=== PATIENT | female | born 1940 | race Caucasian/White ===

== ENCOUNTER 2021-07-11 11:19 | Emergency (ER) | payer MEDICARE ==
[2021-07-11 11:39] VITALS: RESP 20
[2021-07-11 11:50] VITALS: BP 154/70; PULSE 88; TEMP 98.6
--- NOTE | 2021-07-11 12:47 | ED ---
General Adult HPI - General Chief complaint: Wound/Laceration Stated complaint: Lt Leg Wound Time Seen by Provider: 07/11/21 12:04 Source: patient Mode of arrival: wheelchair Limitations: no limitations - History of Present Illness Initial comments: Dictation was produced using [employer] dictation software. please excuse any grammatical, word or spelling errors. Chief Complaint: 81-year-old female presents emergency department for left leg wound History of Present Illness: 81-year-old female presents to the emergency department for evaluation of left leg wound. TAC on the of last month she struck her lateral lower leg on the corner of a standing object and suffered a wound. She said there was initial bleeding. She didn't report hematoma formation over the following several days. She states that she had gone to [facility] multiple times. Patient did not receive any follow-up. She was told by family friend to follow-up with Dr. Mejia the specifications checker. Dr. Mejia value patient in the office and told patient to come to the emergency room to be evaluated by the vascular surgeon, Dr. Tellez. Patient was told that she has a hematoma along the lateral left calf. She did not have a drain in Dr. Mejia's office due to concerns of the wound being next to a vein. The ROS documented in this emergency department record has been reviewed and confirmed by me. Those systems with pertinent positive or negative responses have been documented in the HPI. All other systems are other negative and/or noncontributory. PHYSICAL EXAM: General Impression: Alert and oriented x3, not in acute distress HEENT: Normocephalic atraumatic, extra-ocular movements intact, pupils equal and reactive to light bilaterally, mucous membranes moist. Cardiovascular: Heart regular rate and rhythm Chest: Able to complete full sentences, no retractions, no tachypnea Musculoskeletal: Pulses present and equal in all extremities, no peripheral edema Motor: no focal deficits noted Neurological: CN II-XII grossly intact, no focal motor or sensory deficits noted Skin: Intact with no visualized rashes Psych: Normal affect and mood Left lower extremity: There does appear to be a hematoma formation measuring approximately 3 x 3 cm, there is no surrounding erythema or purulent drainage. ED course: 81-year-old female presents to the emergency department for evaluation of left lower extremity wound. Vital signs upon arrival are within acceptable limits. Spoke with Dr. Tellez who spoke with Dr. Mejia. Dr. Tellez understands the patient has a hematoma that needs to be drained. Spoke with Dr. Tellez requested to evaluate the patient at the bedside. Patient was evaluated at the bedside by Dr. Tellez. Dr. Tellez planning to have outpatient surgery for hematoma evacuation. - Related Data Home Medications Medication Instructions Recorded Confirmed Aspirin 81 mg PO DAILY 06/19/15 06/19/15 Cetirizine HCl [Zyrtec] 10 mg PO DAILY 06/19/15 06/19/15 Omeprazole [PriLOSEC] 20 mg PO AC-BID 06/19/15 06/19/15 Triamterene-Hctz 37.5-25Mg 1 cap PO DAILY 06/19/15 06/19/15 [Dyazide 37.5-25 Capsule] gemfibroziL [Lopid] 600 mg PO AC-BID 06/19/15 06/19/15 Allergies Allergy/AdvReac Type Severity Reaction Status Date / Time Penicillins Allergy Rash/Hives Verified 07/11/21 11:39 Sulfa (Sulfonamide Allergy Rash/Hives Verified 07/11/21 11:39 Antibiotics) Review of Systems ROS Statement: Those systems with pertinent positive or pertinent negative responses have been documented in the HPI. ROS Other: All systems not noted in ROS Statement are negative. Past Medical History Past Medical History: GERD/Reflux, Hyperlipidemia, Hypertension, Osteoarthritis (OA) History of Any Multi-Drug Resistant Organisms: None Reported Past Surgical History: Section, Cholecystectomy, Hysterectomy Additional Past Surgical History / Comment(s): C SECTION X3 Past Anesthesia/Blood Transfusion Reactions: No Reported Reaction Past Psychological History: No Psychological Hx Reported Smoking Status: Never smoker Past Alcohol Use History: Rare Past Drug Use History: None Reported - Past Family History Mother Family Medical History: No Reported History General Exam Limitations: no limitations Course Vital Signs 07/11/21 11:37 Temperature 98.6 F Pulse Rate 88 Respiratory 20 Rate Blood Pressure 154/70 O2 Sat by Pulse 96 Oximetry Disposition Clinical Impression: Leg hematoma Disposition: HOME SELF-CARE Condition: Fair Instructions (If sedation given, give patient instructions): Hematoma (ED) Is patient prescribed a controlled substance at d/c from ED?: No Referrals: Sameer Tellez MD [STAFF PHYSICIAN] - 1-2 days
--- NOTE | 2021-07-11 18:59 | CONS ---
CONSULTATION This is an 81-year-old female. She had a trauma to the left lower extremity on May 20. She went to [facility]. She was treated there a few times. The hematoma is intact. No evidence of any infection. The patient has no history of diabetes, history of hypertension, well controlled with medication. On examination, the patient was seen in the emergency room. She has an old hematoma which is about 3 weeks old. No evidence of infection. Discussed with the patient. The patient wants to an elective evacuation of the hematoma. We will contact the patient. The patient can go home. MMODL / IJN: [id number] /
== END 2021-07-11 15:54 | disposition home or self-care (01) ==
LOC: EC 11:19
DX: S80.12XA Contusion of left lower leg, initial encounter (principal); K21.9 Gastro-esophageal reflux disease without esophagitis; E78.5 Hyperlipidemia, unspecified; I10 Essential (primary) hypertension; M19.90 Unspecified osteoarthritis, unspecified site; Z79.82 Long term (current) use of aspirin; Z88.0 Allergy status to penicillin; Z88.2 Allergy status to sulfonamides; Z90.49 Acquired absence of other specified parts of digestive tract; Z90.710 Acquired absence of both cervix and uterus; X58.XXXA Exposure to other specified factors, initial encounter
CPT/HCPCS: 99283